=== PATIENT | female | born 1995 | race Caucasian/White ===

== ENCOUNTER → 2018-04-28 | Outpatient (CLI) | payer OTHER | LOC: M.RAD 13:46 | DX: S69.92XA Unspecified injury of left wrist, hand and finger(s), initial encounter (principal); X58.XXXA Exposure to other specified factors, initial encounter; Y93.89 Activity, other specified; Y92.89 Other specified places as the place of occurrence of the external cause; Y99.8 Other external cause status ==

== ENCOUNTER 2018-08-29 19:47 | Emergency (ER) | payer BC ==
[~2018-08-29] VITALS: Ht 154.9 cm; Wt 47.6 kg
[2018-08-29] MEDS ORDERED: MINOCIN50 MG PO (19:54)
[2018-08-29 20:46] LABS: HEMATOCRIT 35.1 % (37.0-47.0); HEMOGLOBIN 11.3 gm/dL (12.0-15.0); MCH 25.3 pg (26.0-34.0); MCHC 32.2 g/dL (28.0-37.0); MCV 78.7 fL (80.0-100.0); MPV 8.3 fl. (7.2-11.1); NUCLEATED RBCS 0 /100WBC; PLATELET COUNT* 328 thou/uL (150-400); RBC 4.46 mil/uL (4.20-5.00); RDW-CV 17.4 % (10.5-14.5); WBC 11.2 thou/uL (4.0-11.0)
[2018-08-29 20:51] LABS: URINE BLOOD NEGATIVE (Negative); URINE CLARITY CLEAR; URINE COLOR YELLOW; URINE GLUCOSE-RANDOM NEGATIVE (Negative); URINE KETONES 1+ (Negative); URINE LEUKOCYTES-REFLEX NEGATIVE (Negative); URINE NITRITE-REFLEX NEGATIVE (Negative); URINE PROTEIN NEGATIVE (Negative); URINE SPECIFIC GRAVITY >= 1.030 (1.005-1.030); URINE UROBILINOGEN 0.2 E.U./dl (0.2-1.0)
[2018-08-29 20:52] LABS: ICTOTEST (BILI CONFIRMATORY) Negative (Negative); URINE BILIRUBIN 1+ (Negative)
[2018-08-29 20:54] LABS: CALCIUM 9.1 mg/dL (8.5-10.1); CREATININE 0.7 mg/dL (0.6-1.3); POTASSIUM 4.2 mmol/L (3.5-5.1)
[2018-08-29 20:57] LABS: APTT 36.4 Seconds (25.0-31.3); INR 1.1; PROTIME 11.4 Seconds (9.20-11.50)
[2018-08-29 21:05] LABS: ALBUMIN 3.6 g/dL (3.4-5.0); TOTAL BILIRUBIN 0.3 mg/dL (<0.1-1.0); TOTAL PROTEIN 7.5 g/dL (6.4-8.2)
[2018-08-29 21:33] LABS: ABSOLUTE EOSINOPHILS 1.5 thou/uL (0.0-0.7); ABSOLUTE LYMPHOCYTES 2.8 thou/uL (0.8-5.3); ABSOLUTE MONOCYTES 1.3 thou/uL (0.0-1.2); ABSOLUTE NEUTROPHILS 5.6 thou/uL (1.6-8.1)
[2018-08-29 21:34] LABS: ANISOCYTOSIS 1+; GIANT PLATELETS RARE; LARGE PLATELETS OCCASIONAL; PLATELET ESTIMATE ADEQUATE
[2018-08-29] MEDS ORDERED: ONDANSETRON HCL4 M2 PO (22:39)
[2018-08-29] MEDS ORDERED: FLAGYL500 M1 PO (22:39)
[2018-08-29] MEDS ORDERED: CIPRO500 MG PO (22:39)
[2018-08-29 23:11] VITALS: BP 106/68
== END 2018-08-29 23:11 | disposition home or self-care (01) ==
LOC: M.ERS 19:47
PROVIDERS: Nurse Practitioner Family
DX: K52.9 Noninfective gastroenteritis and colitis, unspecified (principal); K62.5 Hemorrhage of anus and rectum; Z88.5 Allergy status to narcotic agent; Z90.49 Acquired absence of other specified parts of digestive tract

== ENCOUNTER 2018-09-01 10:39 | Inpatient (IN) | payer BC ==
[~2018-09-01] VITALS: Ht 157.5 cm; Wt 45.7 kg
--- NOTE | ~2018-09-01 | CON ---
[address] [address] CONSULTATION Name: ROXANE CORRALES Room: [address] IN M.R.#: [id number] Admission: 09/01/18 Attend Phys: Rene Julien MD Discharge: Date of : 97 Report #: [id number] THIS REPORT FOR: //name// CC: Nai Brice DO Rene Julien MD REFERRING PHYSICIAN: Rene Julien MD REASON FOR CONSULTATION: Abdominal pain and diarrhea. IMPRESSION: 1. Lower abdominal pain associated with chronic diarrhea with associated rectal bleeding, fecal urgency cramping, and weight loss - suspect inflammatory bowel disease versus less likely infectious colitis including Clostridium difficile colitis. 2. Weight loss of 10 pounds over the last 3 weeks secondary to #1. 3. Nausea and vomiting with history of gastroparesis in the past, for which the patient has been treated with sublingual Zofran. 4. Microcytic anemia, which could be multifactorial, but could be related to issues related to her upper and lower gastrointestinal tract, particularly with chronic diarrhea versus related to her menstrual periods. 5. Has strong family history of autoimmune disease with history of rheumatoid arthritis, lupus. RECOMMENDATIONS: 1. Agree with the patient being admitted to hospital for IV fluids, IV antibiotics empirically. 2. Await stool studies. 3. We will proceed with upper endoscopy with small bowel biopsy, as well as colonoscopy to the level of the terminal ileum with biopsies from throughout the colon. We scheduled for brigidoorrow morning at 0800 hours. I have discussed the nature, risks, benefits, alternatives of the procedure with the patient, as well as her parents and they are agreeable to the same. 4. We will make further recommendations after endoscopy. HISTORY OF PRESENT ILLNESS: The patient is a very pleasant 22-year-old very healthy white female who has no past medical history, who was admitted to hospital with complaints of about 2-3 week history of chronic diarrhea with associated fecal urgency, cramping, tenesmus, and rectal bleeding. She has not been feeling good for the last 2 to 3 weeks and has lost about 10 pounds. She is down to about 100 pounds. She has also not had much of an appetite because when she does eat, she gets abdominal cramping. 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 She denies any history of any problems related to her lower GI tract in the past, [place] [address] CONSULTATION Name: ROXANE CORRALES Room: [address] IN [facility].#: [id number] Admission: 09/01/18 Attend Phys: Rene Julien MD Discharge: Date of : 97 Report #: [id number] studies of her lower GI tract in the past. She has undergone previous upper endoscopy, as well as testing to evaluate her gallbladder. Eventually, her gallbladder removed in the past for acalculous cholecystitis. There is no known family history of inflammatory bowel disease including Crohn's or ulcerative colitis. She was recently seen in the emergency room here and was placed on antibiotics for these issues on 08/19, but has continued to have problems with abdominal pain and cramping and was not able to tolerate the Flagyl very well. She previously had not been exposed to any antibiotics prior to this last ER visit. She is currently admitted to hospital for further evaluation and treatment. ALLERGIES: HYDROCODONE. MEDICATIONS: At home are just Zofran sublingual. She does take minocycline on a regular basis for acne. PAST MEDICAL AND SURGICAL HISTORY: Remarkable for previous cholecystectomy; history of gastroparesis, for which she has never really been on any specific medication for the same other than p.r.n. Zofran. She is otherwise healthy. 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 She does not smoke or drink. FAMILY HISTORY: As above. PHYSICAL EXAMINATION: GENERAL: Pleasant 22-year-old very slight white female who is awake and alert. She is a little pale. CARDIOPULMONARY: Revealed a regular rate and rhythm. LUNGS: Clear. ABDOMEN: Soft, was bloated. She is mildly tender in lower quadrants. No rebound or guarding was noted. LABORATORY DATA: From today revealed her white count of 8.5, hemoglobin 12.1, platelet count 352,000. Her MCV is 79.5 and RDW of 17.2. Her complete metabolic panel revealed a sodium 142, potassium 3.9, chloride 105, bicarbonate is 26, her BUN is 8, creatinine 0.8, GFR is 91. Total bilirubin 0.2, alkaline phosphatase 106, AST 20, ALT 19, albumin is 3.7. Her urine revealed her to be very dehydrated with a specific gravity greater than 1.030 and she had 2+ ketones. IMAGING DATA: CT scan of the abdomen and pelvis suggest there may be some thickening of her colon, particularly in the right colon. DISCUSSION: At the present time, we will proceed with gentle bowel preparation, which she is using only some soapsuds enemas tomorrow morning. We will proceed with upper and lower endoscopy tomorrow and biopsies [place] [address] CONSULTATION Name: ROXANE CORRALES Room: [address] IN [facility]#: [id number] Admission: 09/01/18 Attend Phys: Rene Julien MD Discharge: Date of : 97 Report #: [id number] recommendations thereafter. I have discussed the plans with the patient, as well as her family in room and everyone is in agreement with the same. By: [id number] Camp DO /valentino
--- NOTE | ~2018-09-01 | PROC ---
[address] [address] PROCEDURE REPORT Name: ROXANE CORRALES Room: [address] IN M.R.#: [id number] Admission: 09/01/18 Attend Phys: Rene Julien MD Discharge: 09/05/18 Date of : 97 Report #: [id number] THIS REPORT FOR: //name// For GI report, Please see the Provation report in Perceptive 7 content. By: [id number] Records Staff KYLIE /KHUSHBU
[~2018-09-01 10:39] MED LIST: CIPRO500 MG PO; FLAGYL500 M1 PO; MINOCIN50 MG PO; ONDANSETRON HCL4 M2 PO
--- NOTE | 2018-09-01 11:00 | NUR ---
PT TO ROOM 208 VIA WC. PT ORIENTED TO ROOM,CALL LIGHT WITHIN REACH. MOTHER AT BS. PT REPORTS NAUSEA. DR HARPER NOTIFIED OF PT ARRIVAL TO FLOOR
[2018-09-01 11:14] VITALS: BP 111/74
[2018-09-01 11:50] LABS: ABSOLUTE BASOPHILS 0.1 thou/uL (0.0-0.2); ABSOLUTE EOSINOPHILS 0.8 thou/uL (0.0-0.7); ABSOLUTE LYMPHOCYTES 1.5 thou/uL (0.8-5.3); ABSOLUTE MONOCYTES 0.9 thou/uL (0.0-1.2); ABSOLUTE NEUTROPHILS 5.3 thou/uL (1.6-8.1); BASOPHILS 1.1 %; EOSINOPHILS 9.2 %; HEMATOCRIT 37.6 % (37.0-47.0); HEMOGLOBIN 12.1 gm/dL (12.0-15.0); LYMPHOCYTES 17.4 %; MCH 25.5 pg (26.0-34.0); MCHC 32.1 g/dL (28.0-37.0); MCV 79.5 fL (80.0-100.0); MONOCYTES 10.7 %; MPV 8.3 fl. (7.2-11.1); NUCLEATED RBCS 0 /100WBC; PLATELET COUNT* 352 thou/uL (150-400); POLYS 61.6 %; RBC 4.73 mil/uL (4.20-5.00); RDW-CV 17.2 % (10.5-14.5); WBC 8.5 thou/uL (4.0-11.0)
[2018-09-01 12:14] LABS: ALBUMIN 3.7 g/dL (3.4-5.0); CALCIUM 9.5 mg/dL (8.5-10.1); CREATININE 0.8 mg/dL (0.6-1.3); POTASSIUM 3.9 mmol/L (3.5-5.1); TOTAL BILIRUBIN 0.2 mg/dL (<0.1-1.0); TOTAL PROTEIN 7.4 g/dL (6.4-8.2)
--- NOTE | 2018-09-01 13:00 | NUR ---
Nutrition: Consult received for "low wt, vegan." Pt weighs within a normal wt range for ht; BMI 19.2. Cipro. Garstroparesis and benjamin, noted on progress note. Pt is a vegan, on vegan diet along with clear liquid diet. RD will order Ensure Clear to add nutrition/kcals to pt's diet while on CLD. Low risk. Follow up on wt, po intake, diet order, possible need for supplement, 09/06/18.
[2018-09-01 15:56] VITALS: BP 106/71
[2018-09-01 16:09] LABS: URINE BLOOD NEGATIVE (Negative); URINE CLARITY CLEAR; URINE COLOR YELLOW; URINE GLUCOSE-RANDOM NEGATIVE (Negative); URINE KETONES 2+ (Negative); URINE LEUKOCYTES-REFLEX TRACE (Negative); URINE PROTEIN NEGATIVE (Negative); URINE SPECIFIC GRAVITY >= 1.030 (1.005-1.030); URINE UROBILINOGEN 0.2 E.U./dl (0.2-1.0)
[2018-09-01 16:10] LABS: URINE BILIRUBIN 1+ (Negative); URINE NITRITE-REFLEX POSITIVE (Negative)
[2018-09-01 16:11] LABS: ICTOTEST (BILI CONFIRMATORY) Negative (Negative)
[2018-09-01 16:13] LABS: BACTERIA-REFLEX None Seen /HPF (None Seen); CASTS None Seen /LPF (None Seen); CRYSTALS None Seen /LPF (None Seen); SQUAMOUS 4-10 Moderate /LPF (0-3); URINE RBC None Seen /HPF (0-2); URINE WBC-REFLEX 0-5 Rare /HPF (0-5)
--- NOTE | 2018-09-01 17:01 | NUR ---
PT CONTINUES TO REPORT NAUSEA THROUGHOUT SHIFT DESPITE MEDS GIVEN. IVF INFUSING. CT THIS AFTERNOON. MOTHER AT AND UPDATED ON PLAN OF CARE.
[2018-09-01 19:05] VITALS: BP 108/67
[2018-09-01 19:45] LABS: ABSOLUTE BASOPHILS 0.1 thou/uL (0.0-0.2); ABSOLUTE EOSINOPHILS 0.8 thou/uL (0.0-0.7); ABSOLUTE LYMPHOCYTES 1.7 thou/uL (0.8-5.3); ABSOLUTE MONOCYTES 0.9 thou/uL (0.0-1.2); ABSOLUTE NEUTROPHILS 5.9 thou/uL (1.6-8.1); BASOPHILS 0.9 %; EOSINOPHILS 8.8 %; HEMATOCRIT 33.6 % (37.0-47.0); HEMOGLOBIN 10.8 gm/dL (12.0-15.0); LYMPHOCYTES 18.3 %; MCH 25.6 pg (26.0-34.0); MCHC 32.3 g/dL (28.0-37.0); MCV 79.2 fL (80.0-100.0); MONOCYTES 9.6 %; MPV 8.4 fl. (7.2-11.1); NUCLEATED RBCS 0 /100WBC; PLATELET COUNT* 322 thou/uL (150-400); POLYS 62.4 %; RBC 4.24 mil/uL (4.20-5.00); RDW-CV 16.9 % (10.5-14.5); WBC 9.4 thou/uL (4.0-11.0)
[2018-09-01 22:06] LABS: AMP/METHAMP Negative (Negative); BARBITURATES Negative (Negative); BENZODIAZEPINES Negative (Negative); COCAINE Negative (Negative); METHADONE Negative (Negative); OPIATES Negative (Negative); PCP Negative (Negative); THC Negative (Negative)
[2018-09-01 22:11] LABS: HIV-1/HIV-2 ANTIBODY Non Reactive (Non Reactive)
--- NOTE | 2018-09-01 23:00 | NUR ---
ASSESSMENT COMPLETE, REFER TO COMPUTER CHARTING FOR FURTHER DETAIL. TRACING SR ON MONITOR. PT MOTHER REPORTS EMESIS ALTHOUGH NOT VISUALIZED BY THIS RN. IVF INFUSING ORDERED. IV PHENERGAN GIVEN ORDERED. VSS. HOURLY ROUNDING FOR SAFETY. CLWR.
[2018-09-02] VITALS: BP 97/62
[2018-09-02 03:50] VITALS: BP 99/53
[2018-09-02 06:29] LABS: CALCIUM 8.3 mg/dL (8.5-10.1); CREATININE 0.7 mg/dL (0.6-1.3); POTASSIUM 3.6 mmol/L (3.5-5.1); TOTAL BILIRUBIN 0.2 mg/dL (<0.1-1.0); TOTAL PROTEIN 6.2 g/dL (6.4-8.2)
[2018-09-02 07:30] VITALS: BP 113/69
[2018-09-02 12:00] VITALS: BP 101/62
[2018-09-02 16:00] VITALS: BP 118/70
--- NOTE | 2018-09-02 17:52 | NUR ---
pt nauseated with dry heaves this am. returned from procedures and has been able to tolerate small amount of diet with no n/v. many family members in room visiting. pt able to make needs known, call light in reach
[2018-09-02 20:00] VITALS: BP 102/63
[2018-09-03 05:16] LABS: HEMATOCRIT 33.4 % (37.0-47.0); MCV 78.7 fL (80.0-100.0); MPV 8.7 fl. (7.2-11.1); NUCLEATED RBCS 0 /100WBC; PLATELET COUNT* 335 thou/uL (150-400); RBC 4.24 mil/uL (4.20-5.00); RDW-CV 17.2 % (10.5-14.5); WBC 12.1 thou/uL (4.0-11.0)
[2018-09-03 05:25] LABS: CALCIUM 8.9 mg/dL (8.5-10.1); CREATININE 0.6 mg/dL (0.6-1.3)
--- NOTE | 2018-09-03 05:51 | NUR ---
ASSUMED PATIENT CARE AT 1900. PATIENT ALERT AND ORIENTED TIMED FOUR. MOTHER AT BEDSIDE. NO NAUSEA OR EMESIS SINCE EGD. NO COMPLAINTS OF PAIN. VSS. UP AD CECILIA. 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
[2018-09-03 07:30] VITALS: BP 100/61
[2018-09-03 07:31] LABS: ABSOLUTE LYMPHOCYTES 1.5 thou/uL (0.8-5.3); ABSOLUTE MONOCYTES 0.4 thou/uL (0.0-1.2); ABSOLUTE NEUTROPHILS 10.3 thou/uL (1.6-8.1); METAMYELOCYTES 3 %; PLATELET ESTIMATE ADEQUATE
[2018-09-03 07:32] LABS: MICROCYTES 3+
[2018-09-03 07:33] LABS: HYPOCHROMASIA 1+; OVALOCYTES 1+
--- NOTE | 2018-09-03 17:33 | NUR ---
ASSUMED CARE OF PATIENT AT APPROX 0730. ALERT AND ORIENTED X4. ASSESSMENT COMPLETED AND CHARTED. VSS ON ROOM AIR. NO COMPLAINTS OF PAIN, NAUSEA, OR SOA. PATIENT RESTED COMFORTABLY IN BED THROUGHOUT SHIFT. HOURLY ROUNDS COMPLETED, CALL LIGHT WITHIN REACH, NURSING WILL CONTINUE TO MONITOR.
[2018-09-03 18:01] VITALS: BP 107/45
[2018-09-03 20:00] VITALS: BP 111/67
--- NOTE | 2018-09-04 05:21 | NUR ---
Alert and oriented x 4. Up independently in the room. She had a shower earlier. Vitals were normal and roomair sat was 97-98% but it was obsewrved that she had red,flushed face. Also her right arm was red and warm. It was not really red around the IV and the IV flushed well. The redness and warmth did not have swelling. I did notify Dr Mason and at that time also the patient stated she felt like she had a lump inher throat, this was at 2145 and her R/A sat was 96% and pulse 69, no other symptoms were observed and the redness had decreased from her face and right arm. Tyleniol and benadryl were given and she's been sleeping well all of the shift.
[2018-09-04 08:00] VITALS: BP 114/62
[2018-09-04 15:53] VITALS: BP 96/63
--- NOTE | 2018-09-04 16:04 | NUR ---
PATIENT REMAINS ALERT AND ORIENTED. DENIES PAIN. REPORTS LESS FREQUENCY IN STOOLS. TOLERATING MEALS. IV REMOVED. UP AD CECILIA. IV SOLUMEDROL CHANGED TO PO. FAMILY AT BEDSIDE. POSSIBLE DC TOMORROW. CALL LIGHT WITHIN REACH. WILL CONTINUE TO MONITOR.
[2018-09-04 17:10] LABS: HEPATITIS B SURFACE AG Negative (Negative)
[2018-09-04 20:30] VITALS: BP 109/49
[2018-09-05 04:40] LABS: HEMATOCRIT 36.4 % (37.0-47.0); HEMOGLOBIN 11.7 gm/dL (12.0-15.0); MCH 25.4 pg (26.0-34.0); MCHC 32.1 g/dL (28.0-37.0); MCV 79.1 fL (80.0-100.0); MPV 8.7 fl. (7.2-11.1); RBC 4.6 mil/uL (4.20-5.00); RDW-CV 17.2 % (10.5-14.5); WBC 15.7 thou/uL (4.0-11.0)
[2018-09-05 04:52] LABS: ALBUMIN 3.2 g/dL (3.4-5.0); CALCIUM 8.8 mg/dL (8.5-10.1); CREATININE 0.7 mg/dL (0.6-1.3); POTASSIUM 3.9 mmol/L (3.5-5.1); TOTAL BILIRUBIN 0.1 mg/dL (<0.1-1.0); TOTAL PROTEIN 6.4 g/dL (6.4-8.2)
[2018-09-05 07:45] VITALS: BP 108/62
[2018-09-05] MEDS ORDERED: PREDNISONE 10 M10 MG PO (08:21)
[2018-09-05] MEDS ORDERED: BENTYL 10 MG CA10 M1 PO (08:22)
[2018-09-05] MEDS ORDERED: LIALDA1.2 GM PO (08:22)
[2018-09-05] MEDS ORDERED: IRON325 PO (08:24)
[2018-09-05] MEDS ORDERED: PEPCID40 MG PO (08:53)
[2018-09-05] MEDS ORDERED: BALSALAZIDE DI750 M1 PO (08:53)
[2018-09-05] MEDS ORDERED: IRON240 M1 PO (08:57)
[2018-09-05 10:31] VITALS: BP 108/62
[2018-09-05] MEDS ORDERED: TRANSDERM-SCOP1 EACH TRANSDERM (11:00)
--- NOTE | 2018-09-05 11:39 | NUR ---
PATIENT DISCHARGED TO HOME AT THIS TIME. IV REMOVED YESTERDAY. PRESCRIPTIONS GIVEN TO PARENT. PATIENT AND MOM VERBALIZE UNDERSTANDING OF DC INSTRUCTIONS.
--- NOTE | 2018-09-05 17:08 | PATH ---
[address] [address] PATHOLOGY RPT PROCEDURE Name: ROXANE RODRÍGUEZ Room: [address] IN ..#: [id number] Admission: 09/01/18 Date of : 97 Discharge: 09/05/18 Report #: [id number] Path Case #: [id number] [facility] Accession Number: [id number] . 01 Material submitted: . PART A: SMALL BOWEL BIOPSY PART B: CECAL BIOPSY PART C: TERMINAL ILEUM BIOPSY PART D: ASCENDING COLON BIOPSY PART E: TRANSVERSE COLON BIOPSY PART F: DESCENDING COLON BIOPSY PART G: SIGMOID BIOPSY PART H: RECTAL BIOPSY . 01 Clinical history: . Colitis, paint . 02 Diagnosis: A. Small bowel biopsy: - Benign small intestinal mucosa with focal active inflammation, negative for granulomas, viral inclusions and dysplasia. . B. Cecal biopsy: - Severe chronic active colitis, negative for granulomas, viral inclusions and dysplasia. See comment. . C. Terminal ileum biopsy: - Mild chronic active ileitis with microgranulomas, negative for viral inclusions and dysplasia. See comment. . D and E. Ascending and transverse colon biopsies: - Severe chronic active colitis with microgranulomata, negative for viral inclusions and dysplasia. . F. Descending colon biopsy: - Severe chronic active colitis, negative for granulomas, viral inclusions and dysplasia. See comment. . G and H. Sigmoid and rectal biopsies: - Moderate chronic active colitis, negative for granulomas, viral inclusions and dysplasia. See comment. LBQ/09/05/2018 . 02 Comment: Focal active cryptitis is seen in the small bowel biopsy (A) without features of chronic inflammation seen. All of the colonic biopsies show chronic inflammation evidenced by crypt distortion, basal lymphoplasmacytosis, prominent lymphoid [place] [address] PATHOLOGY RPT PROCEDURE Name: ROXANE RODRÍGUEZ Room: [address] IN [facility]#: [id number] Admission: 09/01/18 Date of : 97 Discharge: 09/05/18 Report #: [id number] Path Case #: [id number] eosinophils as well as active inflammation with easily identified crypt abscesses and cryptitis, which are in general histologically less pronounced in the more distal biopsies (G and H). Several microglanulomata, some more poorly formed as well as a few represented by multinucleated microgranulomata are seen in the terminal ileum, ascending and transverse colon biopsies. The histologic features are typical of inflammatory bowel disease and favors Crohn's disease. Review of Dr. Camp's consult report as well as subsequent procedure report (dated 09/01 and 09/02/2018), reveals a clinical suspicion of inflammatory bowel disease and the histologic findings are typical of inflammatory bowel disease, favoring Crohn's disease. . Review of Dr. 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 Discussed with Dr. Camp on afternoon of 09/05/2018. (MAYURI/db; 09/05/2018) . 02 Electronically signed: . Peter Childers MD, Pathologist NPI- [id number] . 01 Gross description: . A. The specimen is received in formalin, labeled "Rodríguez, Roxane, small bowel BX" and consists of multiple fragments of soft abdullahi tissue measuring 1.2 x 0.5 x 0.2 cm in aggregate which are entirely submitted in A1. . B. The specimen is received in formalin, labeled "Rodríguez, Roxane, cecal biopsy" and consists of 3 fragments of soft abdullahi tissue measuring between 0.2 x 0.1 cm and 0.4 x 0.3 x 0.1 cm. They are entirely submitted in B1. . C. The specimen is received in formalin, labeled "Marcos, Roxane, terminal ileum biopsy" and consists of 3 fragments of soft abdullahi tissue measuring between 0.2 x 0.1 cm and 0.4 x 0.3 x 0.1 cm. They are entirely submitted in C1. . D. The specimen is received in formalin, labeled "Rodríguez, Roxane, ascending colon biopsy" and consists of 2 fragments of soft abdullahi tissue measuring 0.4 x 0.1 x 0.1 cm and 0.5 x 0.3 x 0.1 cm. They are entirely submitted in D1. . E. The specimen is received in formalin, labeled "Rodríguez, Roxane, transverse colon biopsy" and consists of 2 fragments of abdullahi tissue measuring 0.3 x 0.3 x 0.2 cm and 0.3 x 0.2 x 0.1 cm. They are entirely submitted in E1. . F. The specimen is received in formalin, labeled "Marcos, Roxane, descending colon biopsy" and consists of 2 fragments [place] [address] PATHOLOGY RPT PROCEDURE Name: ROXANE RODRÍGUEZ Room: [address] IN [facility].#: [id number] Admission: 09/01/18 Date of : 97 Discharge: 09/05/18 Report #: [id number] Path Case #: [id number] measuring 0.3 x 0.2 x 0.1 cm and 0.7 x 0.2 x 0.1 cm. They are entirely submitted in F1. . G. The specimen is received in formalin, labeled "Roxane Rodríguez, sigmoid biopsy" and consists of 4 fragments of soft abdullahi tissue measuring between 0.2 x 0.1 cm and 0.3 x 0.3 x 0.2 cm. They are entirely submitted in G1. . H. The specimen is received in formalin, labeled "Roxane Rodríguez, rectal biopsy" and consists of 2 fragments of abdullahi-brown tissue measuring 0.5 x 0.3 x 0.1 cm and 0.5 x 0.2 x 0.1 cm. They are entirely submitted in H1. (SDY; 09/04/2018) SYU/SYU . 02 Pathologist provided ICD-10: K52.9 . 02 CPT . 375973, 875484, 340236, 615128, 766237, 290981, [id number], [id number] Specimen Comment: A courtesy copy of this report has been sent to Specimen Comment: [phone]. Specimen Comment: Report sent to ,DR RIDLEY / DR HARPER Performed at: [address] [facility] [address], [place], [place] [id number] MD Lino Key MD Phone: [phone] Performed at: 02 [facility] [place] [address] [address], [place], [place] [id number] MD Peter Childers MD Phone: [phone]
== END 2018-09-05 11:15 | disposition home or self-care (01) | DRG 386 ==
LOC: M.2W 10:39 → M.ORTHSURG 09-03 07:12
PROVIDERS: Internal Medicine Gastroenterology; ADMIT Family Medicine
DX: K51.00 Ulcerative (chronic) pancolitis without complications (principal); K62.5 Hemorrhage of anus and rectum; Z68.1 Body mass index [BMI] 19.9 or less, adult; D50.9 Iron deficiency anemia, unspecified; R63.4 Abnormal weight loss; E86.0 Dehydration; Z79.899 Other long term (current) drug therapy; Z79.2 Long term (current) use of antibiotics; Z88.5 Allergy status to narcotic agent; Z82.61 Family history of arthritis; Z82.0 Family history of epilepsy and other diseases of the nervous system

== ENCOUNTER 2020-02-27 22:16 | Observation (INO) | payer BC ==
[~2020-02-27] VITALS: Ht 154.9 cm; Wt 49.9 kg
[~2020-02-27 22:16] MED LIST changes: +BALSALAZIDE DI750 M1 PO; +BENTYL 10 MG CA10 M1 PO; +IRON240 M1 PO; +IRON325 PO; +LIALDA1.2 GM PO; +PEPCID40 MG PO; +PREDNISONE 10 M10 MG PO; +PROBIOTIC1 EAC1 PO; +TRANSDERM-SCOP1 EACH TRANSDERM; +VITAMIN D35000 UNIT PO
[2020-02-27 22:24] VITALS: BP 137/79
[2020-02-27] MEDS ORDERED: REMICADE 1100 MG/VIA (22:27)
[2020-02-27 22:30] LABS: URINE BILIRUBIN NEGATIVE (Negative); URINE BLOOD NEGATIVE (Negative); URINE CLARITY CLEAR; URINE COLOR YELLOW; URINE GLUCOSE-RANDOM NEGATIVE (Negative); URINE KETONES NEGATIVE (Negative); URINE LEUKOCYTES-REFLEX NEGATIVE (Negative); URINE NITRITE-REFLEX NEGATIVE (Negative); URINE PROTEIN NEGATIVE (Negative); URINE UROBILINOGEN 0.2 E.U./dl (0.2-1.0)
[2020-02-27 23:32] LABS: ABSOLUTE BASOPHILS 0.1 thou/uL (0.0-0.2); ABSOLUTE EOSINOPHILS 0.3 thou/uL (0.0-0.7); ABSOLUTE LYMPHOCYTES 3.8 thou/uL (0.8-5.3); ABSOLUTE MONOCYTES 0.8 thou/uL (0.0-1.2); ABSOLUTE NEUTROPHILS 3.7 thou/uL (1.6-8.1); EOSINOPHILS 3.6 %; HEMATOCRIT 40.4 % (37.0-47.0); HEMOGLOBIN 13.9 gm/dL (12.0-15.0); LYMPHOCYTES 43.7 %; MCH 30.8 pg (26.0-34.0); MCHC 34.5 g/dL (28.0-37.0); MCV 89.4 fL (80.0-100.0); MONOCYTES 9.6 %; MPV 9.6 fl. (7.2-11.1); NUCLEATED RBCS 0 /100WBC; PLATELET COUNT* 236 thou/uL (150-400); POLYS 42.1 %; RBC 4.52 mil/uL (4.20-5.00); RDW-CV 13.2 % (10.5-14.5); WBC 8.7 thou/uL (4.0-11.0)
[2020-02-27 23:33] LABS: CALCIUM 8.7 mg/dL (8.5-10.1); CREATININE 0.7 mg/dL (0.6-1.3); POTASSIUM 3.4 mmol/L (3.5-5.1)
[2020-02-28 04:00] VITALS: BP 104/55
[2020-02-28 04:14] VITALS: BP 109/60
--- NOTE | 2020-02-28 06:37 | NUR ---
Admit this am at 0411. She has rt lower quadrant pain for hours and history of Crohns disease. CT scan showed no appendix involvement at this time. Shehas a consult for GI and it was called this am. She has IV zofran since arrival to the floor.
[2020-02-28 08:17] VITALS: BP 94/61
--- NOTE | 2020-02-28 10:34 | NUR ---
cm completed initial assessment to discuss d/c planning. pt is a&ox4. pt lives at home w/parents. pt has no dme. pt denies hx w/snf or HH. pt is employeed, active, drives. no anticipated needs. cm to cont to follow.
[2020-02-28] MEDS ORDERED: MIRALAX119 GM PO (14:59)
[2020-02-28 15:13] VITALS: BP 94/61
--- NOTE | 2020-02-28 16:33 | NUR ---
WENT OVER ALL DISCHARGE INSTRUCTIONS AND MEDS TO TAKE AT HOME. ANSWERED ALL QUESTIONS. PATIENT VERBALIZED UNDERSTANDING. I DID REMOVE THE IV WITH CANNULA INTACT. NO N/V OR PAIN UPON DISCHARGE SHE DID DRINK ALL THE MAG CITRATE PRIOR TO GOING HOME. OUT TO PRIVATE VEHICLE VIA WHEELCHAIR ACCOMPANIED BY NURSING. MOTHER WAITING FOR HER OUTSIDE. NO DISTRESS NOTED.
[2020-02-29 11:14] LABS: ALBUMIN 4.1 g/dL (3.4-5.0); DIRECT BILIRUBIN 0.1 mg/dL (<0.1-0.3); TOTAL BILIRUBIN 0.4 mg/dL (<0.1-1.0); TOTAL PROTEIN 6.6 g/dL (6.4-8.2)
--- NOTE | 2020-02-29 11:23 | CON ---
[address] [address] CONSULTATION Name: ANTONIROXANEDrea MAHAJAN Room: [address] Tasneem Camarena#: [id number] Admission: 02/28/20 Attend Phys: Cristine Ford MD Discharge: 02/28/20 Date of : 97 Report #: [id number] THIS REPORT FOR: //name// cc: Nai Brice Linda J. DO ~ THIS REPORT FOR: //name// CC: Cristine Brice DO DICTATED BY: Bibi Cash [facility] DATE OF SERVICE: 02/28/2020 Please note at the time of this dictation, the patient was seen and physically examined by myself. HISTORY OF PRESENT ILLNESS: This is a 24-year-old female who is well known to our practice who has a history of UC with pancolitis, who was diagnosed back in 09/2018 of failure of mesalamine and then she was placed on Remicade. Her last Remicade infusion was 01/23 at infusion expressed 5 mg/kg every 8 weeks. Her next infusion is due on 03/20. The patient recently saw Dr. Camp on the tele visit on 02/04 and all was going well. She states her bowels normally go daily. She usually does not have any problems with going at least once a day. She has not noticed any bright red blood or any melanotic stool with the vomitus. She has denied any bright red blood or coffee ground emesis. The patient states that prior to coming in, she was having significant right lower quadrant pain for about an hour and a half before she presented to the Emergency Room that was associated with some nausea and vomiting. She has had no more vomiting since she has got here, but she still has a little bit of nausea and still has some right lower quadrant pain and has not gone to the bathroom since she has been in the hospital. Her last bowel movement was prior to going to the Emergency Room. ALLERGIES: INCLUDE CIPRO, FLAGYL AND HYDROCODONE. MEDICATIONS: From home include infliximab, Remicade 5 mg/kg every 8 weeks and an iron supplementation. PAST MEDICAL HISTORY: Ulcerative colitis. PAST SURGICAL HISTORY: Cholecystectomy. FAMILY HISTORY: Negative for any GI or [place] [address] CONSULTATION Name: ROXANE CORRALES KEYSHAWN Room: [address] Tasneem Camarena#: [id number] Admission: 02/28/20 Attend Phys: Cristine Ford MD Discharge: 02/28/20 Date of : 97 Report #: [id number] SOCIAL HISTORY: Alcohol on special occasions. Denies any tobacco or illegal drug use. REVIEW OF SYSTEMS: Twelve-point review of systems is essentially negative except what is mentioned in the HPI. PHYSICAL EXAMINATION: VITAL SIGNS: Temperature 36.6, pulse 98, respirations 16, and blood pressure 94/61. HEART: Regular rate and rhythm. LUNGS: Clear. ABDOMEN: Soft, positive bowel sounds in all 4 quadrants with some right lower quadrant tenderness noted to palpation. LABORATORY DATA: Hemoglobin 13.9, white count 8.7, and platelets 236. GFR is 105. CT of the abdomen and pelvis were completely normal except a large amount of stool noted in the cecum and throughout the entire colon. IMPRESSION: 1. Abdominal pain, right lower quadrant. 2. Nausea and vomiting, improved. 3. Ulcerative colitis, history of pancolitis, currently on Remicade 5 mg/kg every 8 weeks, last infusion on 01/23 and infusion expressed, her next infusion is on 03/20. PLAN: 1. We will give her some Dulcolax tablets 20 mg now. 2. We will see how she responds to the above and make further recommendations at that time. Thank you for allowing us to participate in this patient's care. Please do not hesitate to call with any questions in regard to this consult. Agree with above assessment and plan by Bibi Cash <ELECTRONICALLY SIGNED> By: Guido Thibodeaux MD 02/29/20 [id number] Thibodeaux MD /nt
== END 2020-02-28 16:36 | disposition home or self-care (01) ==
LOC: M.ERS 22:16 → M.ORTHSURG 02-28 03:09 → M.TBA-ER 02-28 03:09 → M.ORTHSURG 02-28 04:11
PROVIDERS: Emergency Medicine; Internal Medicine Gastroenterology; ADMIT Internal Medicine; ATTEND Internal Medicine
DX: K59.00 Constipation, unspecified (principal); R11.2 Nausea with vomiting, unspecified; R10.31 Right lower quadrant pain; K51.90 Ulcerative colitis, unspecified, without complications